=== PATIENT | male | born 1985 | race Caucasian/White ===

== ENCOUNTER 2017-05-08 21:56 | Emergency (ER) | payer OTHER ==
[~2017-05-08] VITALS: Ht 188 cm; Wt 90.9 kg
[~2017-05-08 21:56] MED LIST: [UNRECOGNIZED DRUG - OTHER] PO; [UNRECOGNIZED DRUG - REMARK] PO
[2017-05-08 21:58] VITALS: TEMP 36.4; Ht 188 cm; Wt 90.9 kg
[2017-05-08] MEDS ORDERED: DOXYCYCLINE HYCLATE 100 MG CAP PO STA (22:25)
[2017-05-08] MEDS ORDERED: DOXY100C PO (22:27)
[2017-05-08 22:33] VITALS: BP 126/71; PULSE 66; O2SAT 97
--- NOTE | 2017-05-09 04:31 | EMERGENCY ROOM VISIT NOTE ---
History First contact with patient: 22:11 Chief Complaint: WOUND INFECTION Stated Complaint: POPPED CYST ON FACE, RED AND SWELLING Nursing Triage Summary: Patient popped cyst between eyes and area is sore and red today. History of Present Illness The patient is a 31 year old male who presents to the Emergency Room with complaints of pain and swelling between his eyebrows. The patient states that he has a recurrent cyst that will occasionally become infected. He states that he popped this 2 days ago, and his pain has not worsened. He has not had fever or chills. He rates his discomfort a 7/10. He is not diabetic. Review of Systems More than 6 systems were reviewed and otherwise negative with the exception of history of present illness. Past Medical/Surgical History Medical Problems: (1) ALCOHOL ABUSE-UNSPEC (2) TOBACCO USE DISORDER Social History Smoking Status: Former Smoker Alcohol Use: occasionally Marital Status: single Occupation Status: unemployed Current/Historical Medications Scheduled Doxycycline Hyclate (Vibramycin), 100 MG PO BID Physical Exam Vital Signs Date Time Temp Pulse Resp B/P (MAP) Pulse Ox O2 Delivery O2 Flow Rate FiO2 05/08/17 22:33 66 18 126/71 97 05/08/17 21:58 36.4 66 18 132/69 97 Room Air Physical Exam VITALS: Vitals are noted on the nurse's note and reviewed by myself. Vital signs stable. GENERAL: Well-developed, well-nourished, white male, who is in no acute distress and resting comfortably. Patient is cooperative with the examination. HEART: Regular rate and rhythm without murmurs gallops or rubs. LUNGS: Clear to auscultation bilaterally without wheezes, rales or rhonchi. No retractions or accessory muscle use. SKIN: The skin was with a small area of cellulitis to the medial aspect of the left upper eyebrow. There is a small cystic-like structure in this area, consistent with the original infection. Medical Decision & Procedures Medications Administered Medications (Trade) Dose Ordered Sig/Jerzy Route Start Time Stop Time Status Last Admin Dose Admin Doxycycline Hyclate (Vibramycin Cap) 100 mg NOW STAT PO 05/08/17 22:25 05/08/17 22:26 DC 05/08/17 22:25 100 MG ED Course Physical exam and history were performed. Nursing notes, EMR, and Medication List were personally reviewed. Patient appears to have a small area of cellulitis after popping a cyst at home. The patient is allergic to penicillin and I will give him a course of doxycycline. He is to follow with his primary care physician with any ongoing or persisting symptoms. He is otherwise welcome back ER anytime. The chart was completed utilizing [employer] Speech Voice Recognition Software. Grammatical errors, random word insertions, pronoun errors, and incomplete sentences are an occasional consequence of this system due to software limitations, ambient noise, and hardware issues. Any formal questions or concerns about the content, text, or information contained within the body of this dictation should be directly addressed to the provider for clarification. . Medical Decision Differential diagnosis: Etiologies such as cellulitis, abscess, MRSA infection, DVT, necrotizing fasciitis, dermatitis, drug eruption, as well as others were entertained.. Impression Primary Impression: Cellulitis Departure Information Dispostion Home / Self-Care Condition GOOD Prescriptions Doxycycline Hyclate (VIBRAMYCIN) 100 Mg Cap 100 MG PO BID for 10 Days, #20 CAP Prov: Vijay Blanco PA-C 05/08/17 Forms HOME CARE DOCUMENTATION FORM, IMPORTANT VISIT INFORMATION Patient Instructions My [facility] Additional Instructions You were seen and evaluated today on an emergency basis only. This is not a substitute for, or an effort to provide, complete comprehensive medical care. It is not possible to recognize and treat all injuries or illnesses in a single emergency department visit. For this reason it is recommended that you followup with your primary care physician with any ongoing or persisting symptoms. Take doxycycline 100 mg twice daily for the next 10 days. Take medication with food. Use sunscreen and wear protective clothing to prevent sunburn when outside while on this medication. You are welcome to return to the emergency department anytime with new, worsening, or concerning symptoms.
== END 2017-05-08 22:34 | disposition home or self-care (01) ==
LOC: C.EDB 21:56
DX: L03.211 Cellulitis of face (principal); Z87.891 Personal history of nicotine dependence